=== PATIENT | female | born 1940 | race Caucasian/White ===

== ENCOUNTER → 2016-12-10 | Outpatient (CLI) | payer MEDICARE, OTHER | LOC: GMAB 14:45 | PROVIDERS: ATTEND Family Medicine | DX: M06.9 Rheumatoid arthritis, unspecified (principal); Z51.12 Encounter for antineoplastic immunotherapy ==

== ENCOUNTER → 2017-03-20 | Outpatient (CLI) | payer MEDICARE, OTHER | END | disposition home or self-care (01) | LOC: GMAB 10:28 | PROVIDERS: ATTEND Family Medicine | DX: E03.9 Hypothyroidism, unspecified (principal) ==

== ENCOUNTER → 2017-05-03 | Outpatient (CLI) | payer MEDICARE, OTHER | END | disposition home or self-care (01) | LOC: GMAB 13:00 | PROVIDERS: ATTEND Family Medicine | DX: R11.0 Nausea (principal) ==

== ENCOUNTER → 2017-05-06 | Outpatient (CLI) | payer MEDICARE, OTHER ==
--- NOTE | 2017-05-07 08:54 | US ---
EXAM DESCRIPTION: Abdomen,Complete CLINICAL HISTORY: NAUSEA COMPARISON: None. TECHNIQUE: Real-time sonographic images of the abdomen are obtained. FINDINGS: Pancreas is unremarkable. The right lobe of the liver measures 14.1 cm. The liver is diffusely homogeneous and normal in echogenicity. No focal hepatic mass is seen. The gallbladder is poorly distended and contains at least 2 foci of increased echogenicity without posterior acoustic shadowing that are nonmobile measuring 5 and 6 mm. There is a smaller lower density focus of increased echogenicity measuring 3 mm in the fundus region seen.. Small amount of hypoechoic sludge in the dependent portion gallbladder seen. No gallbladder wall thickening or pericholecystic fluid is seen. The common bile duct measures 4.0 mm in greatest diameter. The right kidney measures 9.6 x 3.7 x 4.4 cm. The left kidney measures 10.1 x 4.7 x 4.5 cm. Both kidneys show normal renal cortical echogenicity. No hydronephrosis is seen. The spleen measures 9.0 cm. Visualized IVC and abdominal aorta are within normal limits. IMPRESSION: There are several probable gallbladder polyps measuring less than 6 mm greatest diameter versus adherent, nonshadowing gallstones. Small amount of gallbladder sludge is suggested. Poor distention of the gallbladder is seen. No obvious gallbladder wall thickening seen. No sonographic Cooley's sign. Electronically signed by: Yung Fang MD 05/07/2017 8:53 AM CDT
== END | disposition home or self-care (01) ==
LOC: US 13:10
PROVIDERS: ATTEND Family Medicine
DX: R11.0 Nausea (principal)

== ENCOUNTER → 2017-05-23 | Outpatient (CLI) | payer MEDICARE, OTHER | END | disposition home or self-care (01) | LOC: NM 08:56 | PROVIDERS: ATTEND Family Medicine | DX: K82.9 Disease of gallbladder, unspecified (principal) | CPT/HCPCS: 78227; A9537 ==

== ENCOUNTER → 2017-09-16 | Outpatient (CLI) | payer MEDICARE, OTHER | END | disposition home or self-care (01) | LOC: GMAB 17:18 | PROVIDERS: ATTEND Family Medicine | DX: E03.9 Hypothyroidism, unspecified (principal) ==

== ENCOUNTER → 2017-09-20 | Outpatient (CLI) | payer MEDICARE, OTHER ==
--- NOTE | 2017-09-20 17:14 | US ---
EXAM DESCRIPTION: Gall Bladder: ULTRASOUND. CLINICAL HISTORY: GALLSTONES COMPARISON: Hepatobiliary radionuclide imaging 05/24/2017. Ultrasound of the complete abdomen 05/06/2017. TECHNIQUE: Transabdominal scannin-dimensional and Doppler modes. FINDINGS: The gallbladder is normal in size, shape, and echogenicity, with no intraluminal stones or sludge. No fluid around the gallbladder. No wall thickening. 1.8 mm. Common bile duct caliber is 3.7 mm which is within normal limits. . No stones in the visualized portion of the duct. Not tender with transducer pressure. The liver demonstrates normal echogenicity; contour of the liver capsule is smooth where seen. No fluid around the liver. Intrahepatic biliary ducts are non-dilated. Craniocaudal dimension in the mid-clavicular axis is 14.6 cm. Pancreas head, body, tail normal in size and echogenicity. Pancreatic duct is not dilated. Normal Doppler vascularity in the christopher hepatis. Abdominal aorta proximal 2.4 cm. IVC visualized and normal caliber. IMPRESSION: Normal ultrasound of the gallbladder intrahepatic and extra hepatic biliary ducts, liver and pancreas. No organ enlargement. Normal caliber of the proximal abdominal aorta. No ascites. Electronically signed by: Pedrito Haas MD 09/20/2017 5:13 PM CDT
== END | disposition home or self-care (01) ==
LOC: US 12:53
PROVIDERS: ATTEND Surgery
DX: K80.10 Calculus of gallbladder with chronic cholecystitis without obstruction (principal)

== ENCOUNTER → 2017-10-28 | Outpatient (CLI) | payer MEDICARE, OTHER | LOC: GMAB 23:45 | PROVIDERS: ATTEND Family Medicine | DX: M25.562 Pain in left knee (principal); E03.9 Hypothyroidism, unspecified ==

== ENCOUNTER → 2017-11-11 | Outpatient (CLI) | payer MEDICARE, OTHER ==
--- NOTE | 2017-11-12 07:58 | RAD ---
EXAM DESCRIPTION: Pelvis CLINICAL HISTORY: 77 years Female, LEFT HIP PAIN COMPARISON: None. FINDINGS: A single view of the pelvis demonstrates mild degenerative changes with bony pelvic ring is intact. No definite fracture of the left pubic or ischial ramus is noted with an AP view of the hip joint no gross abnormality. If the patient remains symptomatic in the left hip region a two view normal two-view left hip examination should be considered. No soft tissue masses are seen. IMPRESSION: Modest degenerative changes left hip and left SI joint without definite acute fracture. Follow-up dedicated hip examination recommended if the patient remains symptomatic. Electronically signed by: Hari Carr MD 11/12/2017 7:57 AM [facility]
== END | disposition home or self-care (01) ==
LOC: RAD 08:00
PROVIDERS: ATTEND Orthopaedic Surgery
DX: M25.552 Pain in left hip (principal)

== ENCOUNTER → 2017-12-19 | Outpatient (CLI) | payer MEDICARE, OTHER | END | disposition home or self-care (01) | LOC: GMAB 16:29 | PROVIDERS: ATTEND Family Medicine | DX: R94.5 Abnormal results of liver function studies (principal) ==

== ENCOUNTER 2018-05-01 06:09 | Emergency (ER) | payer MEDICARE, OTHER ==
[2018-05-01 06:26] VITALS: TEMP 97.6
[2018-05-01] MEDS ORDERED: FOLIC ACID INJ 5 MG/ML VIAL IV ONE (06:36)
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
--- NOTE | 2018-05-01 07:38 | CT ---
EXAM DATE: 05/01/2018 6:34 AM CDT. PROCEDURE: CT HEAD WITHOUT IV CONTRAST. INDICATION: near syncope, mild confusion, hyperventilation. COMPARISON: None. TECHNIQUE: Axial CT images of the head were acquired without intravenous contrast. This exam was performed according to our departmental dose-optimization program which includes use of Automated Exposure Control, adjustment of the mA and/or kV according to patient size and/or use of iterative reconstruction technique. FINDINGS: No acute intracranial hemorrhage. Schulz white matter differentiation is preserved. No mass effect or midline shift. Mild generalized brain volume loss. Unremarkable orbits. The paranasal sinuses are well aerated. Mastoid air cells are clear. Intact calvarium. IMPRESSION: No acute intracranial abnormality. Mild generalized brain volume loss. Electronically signed by: Dick Clark MD 05/01/2018 7:36 AM CDT
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
[2018-05-01] MEDS ORDERED: MECLIZINE HCL 12.5 MG TAB PO ONE (07:56)
--- NOTE | 2018-05-01 09:11 | CT ---
EXAM DESCRIPTION: Chest w/o Contrast : Computed Tomography. CLINICAL HISTORY: ELEVATED D DIMER R/O PE. Patient has major allergic reaction to IV contrast. COMPARISON: CT scan of the head and chest x-ray earlier today. TECHNIQUE: Spiral-axial scans at 5.0 mm intervals through the lungs and thorax without IV contrast. 2.5 mm lung algorithm axial reconstructions. Coronal and sagittal 2.0 Mm reconstructions. Total Exam DLP: 265.23 mGy-cm. This exam was performed according to our departmental dose-optimization program which includes automated exposure control, adjustment of the mA and/or kV according to patient size and/or use of iterative reconstruction technique; to reduce radiation dose to as low as reasonably achievable (ALARA). FINDINGS: Bilateral apical pleural thickening as well as scattered focal regions of pleural thickening bilaterally. Minimal thickening of the fissures inferiorly. Posterior small lymph nodes abutting the lower lobes. Posterior dependent atelectasis abutting the lower lobes. Atelectasis versus scar inferior lingula. 3.5 mm nodule in the posterior recess right lower lobe subpleural location and soft tissue density on image 92 of the lung window axial images. No other nodules masses or infiltrates. No pleural effusion or pneumothorax. Evaluation of soft tissue Limited due to lack of IV contrast. No gross soft tissue masses are enlarged lymph nodes in the base of the neck mediastinum or bilateral axilla. Minimal atherosclerotic calcification. Airway calcifications of the cartilage. No fluid in the subdiaphragmatic peritoneal space but normal size and density of the spleen and adrenal glands. Small sliding hiatal hernia. Multiple levels of spondylosis of the thoracic spine and minimal arthrosis of the bilateral glenohumeral joints.. IMPRESSION: 1. Unable to evaluate the pulmonary arteries due to lack of IV contrast. Consider bilateral lower extremity duplex ultrasound evaluation of the deep venous systems to screen for DVT. 2. Multifocal areas of pleural thickening. Scattered lung densities. 3.5 mm nodule right lower lobe. According to [employer] Best Practice recommendations, optional CT scan chest follow-up can be performed in 12 month interval. Please see below.* 3. Limited evaluation of the axilla and chest wall and this time and hilum soft tissues due to lack of IV contrast. No large soft tissue masses. *2017 Fleischner Society Recommendations for Single Solid Lung Nodule Follow-Up based on size (average of long- and short-axis diameters) <6 mm Low-Risk Patient: No routine follow-up <6 mm High-Risk Patient: Optional CT at 12 months 6-8 mm Low-Risk Patient: CT at 6-[address] at 18-24 months 6-8 mm High-Risk Patient: CT at 6-[address] at 18-24 months >8 mm Low-Risk Patient: Consider CT, PET/CT or tissue sampling at 3 months >8 mm High-Risk Patient: Same as for low-risk patient Electronically signed by: Pedrito Haas MD 05/01/2018 9:10 AM CDT
[2018-05-01 10:00] VITALS: BP 145/83; O2SAT 99
== END 2018-05-01 09:56 | disposition home or self-care (01) ==
LOC: ER 06:09
DX: R55 Syncope and collapse (principal); I10 Essential (primary) hypertension; H83.09 Labyrinthitis, unspecified ear; E07.9 Disorder of thyroid, unspecified; I45.19 Other right bundle-branch block; Z79.899 Other long term (current) drug therapy

== ENCOUNTER → 2018-06-13 | Outpatient (CLI) | payer MEDICARE, OTHER | LOC: GMAE 12:00 | PROVIDERS: ATTEND Family Medicine | DX: E03.9 Hypothyroidism, unspecified (principal) ==

== ENCOUNTER → 2018-09-12 | Outpatient (CLI) | payer MEDICARE, OTHER ==
--- NOTE | 2018-09-12 15:11 | RAD ---
EXAM DESCRIPTION: Lumbar Spine 5 Views CLINICAL HISTORY: 78 years Female, PT FELL BACK PAIN COMPARISON: None. FINDINGS: 5 views of the lumbar spine show vertebral body heights to be maintained. There is mild to moderate disc space narrowing from L1 through S1 with marginal endplate osteophytes at every level from the lower thoracic to lumbar spine. Disc space narrowing and vacuum disc is most significant on the left at L4-5. Facet hypertrophic and degenerative changes are seen bilaterally right greater than left from L3 through S1. There is mild curvature of the mid lumbar spine with convexity towards the left. Rotational component is seen. IMPRESSION: Levocurvature of the lumbar spine with mild to moderate disc degenerative changes and facet arthropathy is seen. Electronically signed by: Yung Fang MD 09/12/2018 3:10 PM CDT
--- NOTE | 2018-09-12 15:11 | RAD ---
EXAM DESCRIPTION: Sacrum Coccyx CLINICAL HISTORY: PT FELL BACK PAIN COMPARISON: Radiograph of the pelvis November 11, 2017. FINDINGS: 3 views of the sacrum and coccyx. Stable normal sacrococcygeal alignment is present. No acute fractures of the sacrum or coccyx demonstrated. Severe sclerosis and subchondral cysts cystlike changes seen involving the left sacroiliac joint which is largely stable in appearance from November 11, 2017. Multilevel degenerative spondylosis of the visualized lumbar spine. IMPRESSION: No acute radiographic finding. 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 Electronically signed by: Victor Manuel Nichols MD 09/12/2018 3:09 PM CDT
== END ==
LOC: RAD 14:30
PROVIDERS: ATTEND Nurse Practitioner Family
DX: M51.36 Other intervertebral disc degeneration, lumbar region (principal); M47.898 Other spondylosis, sacral and sacrococcygeal region

== ENCOUNTER → 2018-11-03 | Outpatient (CLI) | payer MEDICARE, OTHER | LOC: GMAE 11:07 | PROVIDERS: ATTEND Family Medicine | DX: E03.9 Hypothyroidism, unspecified (principal) ==

== ENCOUNTER → 2019-05-04 | Outpatient (CLI) | payer MEDICARE, OTHER | LOC: GMAE 10:54 | PROVIDERS: ATTEND Family Medicine | DX: E03.9 Hypothyroidism, unspecified (principal) ==

== ENCOUNTER → 2019-11-03 | Outpatient (CLI) | payer MEDICARE, OTHER | LOC: GMAE 11:08 | PROVIDERS: ATTEND Family Medicine | DX: E03.9 Hypothyroidism, unspecified (principal); I10 Essential (primary) hypertension ==

== ENCOUNTER → 2020-04-07 | Outpatient (CLI) | payer MEDICARE, OTHER | LOC: GMAE 11:38 | PROVIDERS: ATTEND Family Medicine | DX: M06.9 Rheumatoid arthritis, unspecified (principal) ==

== ENCOUNTER → 2020-08-09 | Outpatient (CLI) | payer MEDICARE, OTHER | LOC: GMAE 14:31 | PROVIDERS: ATTEND Family Medicine | DX: R39.15 Urgency of urination (principal) ==

== ENCOUNTER → 2020-10-25 | Outpatient (CLI) | payer MEDICARE, OTHER | LOC: GMAE 10:47 | PROVIDERS: ATTEND Family Medicine | DX: E03.9 Hypothyroidism, unspecified (principal); M06.9 Rheumatoid arthritis, unspecified; I10 Essential (primary) hypertension ==